=== PATIENT | male | born 1950 | race Caucasian/White ===

== ENCOUNTER → 2019-10-30 | Outpatient (REF) | payer BC ==
[~2019-10-30] MED LIST: /AUGM875TA OR; ATEN25TA PO; AUGM875T28 PO; BACT800T5 PO; CLIN300C OR; COUM1TAB PO; DILT240C47 PO; DRIS50003 PO; FISH1000 PO; FISHCAP PO; FLEC50TA2 OR; FLON0.05; GEMF600T OR; GEMF600T5 PO; LOSA100T50 PO; METF850T4 PO; MICO2CRE TOP; MULTIVIT PO; NIAS500T2 OR; PRAV20TA2 PO; PRAV40TA2 PO; VALS80CA OR; XARE20TA PO
== END ==
LOC: M SFHCLERA 14:34
PROVIDERS: ATTEND Physician Assistant
DX: R31.9 Hematuria, unspecified (principal)

== ENCOUNTER → 2020-03-25 | Outpatient (CLI) | payer BC ==
[~2020-03-25] MED LIST changes: +FLUT05CR; +FURO20TA2 PO; +MULTCAP PO; +SILD100T; +SITA50TAB PO; +TAMS1CAP17; +VITA50005
== END ==
LOC: M LABSMTC 09:48
PROVIDERS: ATTEND Anesthesiology
DX: Z01.812 Encounter for preprocedural laboratory examination (principal); Z20.828 Contact with and (suspected) exposure to other viral communicable diseases
CPT/HCPCS: C9803; U0003

== ENCOUNTER 2020-03-30 06:44 | Day surgery (SDC) | payer BC ==
[~2020-03-30] VITALS: Ht 180.3 cm; Wt 115.7 kg
[2020-03-30] MEDS ORDERED: NS 1,000 ML IV ONE (07:00)
[2020-03-30] MEDS ORDERED: propofoL 500 MG/50 ML VIAL As Ordered ONE (07:36)
[2020-03-30] MEDS ORDERED: LIDOCAINE 2% 100MG/5ML SDV (FOR ANES.) As Ordered ONE (07:36)
--- NOTE | 2020-03-30 08:03 | ROOR ---
Patient Name: Ray Adler Procedure Date: 03/30/2020 7:32 AM Date of : 1950 Age: 70 Room: [facility] Gender: Male Note Status: Finalized Procedure: Total Colonoscopy to Cecum + Cold Snare Polypectomy Indications: Screening for colorectal malignant neoplasm Providers: Conor Moncada MD Referring MD: Rahul Flynn Np Requesting Provider: Medicines: Monitored Anesthesia Care Complications: No immediate complications. Procedure: Pre-Anesthesia Assessment: - The heart rate, respiratory rate, oxygen saturations, blood pressure, adequacy of pulmonary ventilation, and response to care were monitored throughout the procedure. The Colonoscope was introduced through the anus and advanced to the cecum, identified by appendiceal orifice and ileocecal valve. The colonoscopy was performed without difficulty. The patient tolerated the procedure well. The quality of the bowel preparation was excellent. Findings: The perianal and digital rectal examinations were normal. Non-bleeding internal hemorrhoids were found during retroflexion. The hemorrhoids were small and Grade I (internal hemorrhoids that do not prolapse). Scattered small-mouthed diverticula were found in the recto-sigmoid colon, sigmoid colon and descending colon. Multiple sessile polyps were found in the entire colon. The polyps were small in size. These polyps were removed with a cold snare. Resection and retrieval were complete. The exam was otherwise without abnormality on direct and retroflexion views. Impression: - Non-bleeding internal hemorrhoids. - Diverticulosis in the recto-sigmoid colon, in the sigmoid colon and in the descending colon. - Multiple small polyps in the entire colon, removed with a cold snare. Resected and retrieved. - The examination was otherwise normal on direct and retroflexion views. - The exam was otherwise normal to the cecum. Recommendation: - Patient has a contact number available for emergencies. The signs and symptoms of potential delayed complications were discussed with the patient. Return to normal activities tomorrow. Written discharge instructions were provided to the patient. - High fiber diet. - Discharge patient to home. - Continue present medications. - Await pathology results. - Telephone GI clinic for pathology results in 1 week. - Repeat colonoscopy in 5 years for surveillance based on pathology results. - Return to referring physician. - The findings and recommendations were discussed with the patient. Conor Moncada MD Conor Moncada MD 03/30/2020 8:02:22 AM Electronically signed by Conor Moncada MD Number of Addenda: 0 Note Initiated On: 03/30/2020 7:32 AM Estimated Blood Loss: Estimated blood loss: none.
[2020-03-30 08:28] VITALS: BP 117/58
== END 2020-03-30 08:30 | disposition home or self-care (01) ==
LOC: M OPP 06:44
PROVIDERS: ATTEND Internal Medicine Gastroenterology
DX: Z12.11 Encounter for screening for malignant neoplasm of colon (principal); K64.0 First degree hemorrhoids; K57.90 Diverticulosis of intestine, part unspecified, without perforation or abscess without bleeding; K63.5 Polyp of colon

== ENCOUNTER 2020-04-24 00:59 | Inpatient (IN) | payer BC ==
[~2020-04-24] VITALS: Ht 180.3 cm; Wt 116.2 kg
[~2020-04-24 00:59] MED LIST changes: -SILD100T; +SILD100T PO; -TAMS1CAP17; +TAMS1CAP17 PO; -VITA50005; +VITA50005 PO
[2020-04-24] MEDS ORDERED: ACETAMINOPHEN TAB 650MG DOSE (2X325MG) PO ONE (02:00)
[2020-04-24] MEDS ORDERED: NS 500 ML IV ONE (02:00)
[2020-04-24 02:17] LABS: BASO % 0.2 % (0.0-1.0); EOS % 0.1 % (0.0-3.0); HEMATOCRIT 42.5 % (42.0-52.0); HEMOGLOBIN 14.5 g/dl (13.5-17.5); LYMPH # 0.2 10^3/uL (1.5-5.0); MEAN CORPUSCULAR HEMOGLOBIN 31.1 pg (27.0-33.0); MEAN CORPUSCULAR HGB CONC 34.1 g/dl (32.0-36.5); MEAN CORPUSCULAR VOLUME 91.2 fl (80.0-96.0); MONO % 6.5 % (0.0-5.0); NEUTROPHILS # 13.9 10^3/uL (1.5-8.5); NEUTROPHILS % 91.5 % (36.0-66.0); PLATELET COUNT, AUTOMATED 204 10^3/uL (150-450); RED BLOOD COUNT 4.66 10^6/uL (4.30-6.10); WHITE BLOOD COUNT 15.2 10^3/uL (4.0-10.0)
[2020-04-24 02:22] LABS: APPEARANCE, URINE CLEAR (CLEAR); BACTERIA, URINE AUTO NEGATIVE (NEGATIVE); BILIRUBIN, URINE AUTO NEGATIVE (NEGATIVE); BLOOD, URINE BLOOD NEGATIVE (NEGATIVE); COLOR, URINE YELLOW (YELLOW); GLUCOSE, URINE (UA) AUTO NEGATIVE (NEGATIVE); KETONE, URINE AUTO NEGATIVE (NEGATIVE); LEUKOCYTE ESTERASE, URINE AUTO NEGATIVE (NEGATIVE); MUCUS, URINE SMALL (NEGATIVE); NITRITE, URINE AUTO NEGATIVE (NEGATIVE); PROTEIN, URINE AUTO NEGATIVE (NEGATIVE); RBC, URINE AUTO 3 /HPF (0-3); SPECIFIC GRAVITY URINE AUTO 1.024 (1.002-1.035); SQUAMOUS EPITHELIAL CELL UR AU 1 /HPF (0-6); UROBILINOGEN, URINE AUTO 0.2 mg/dL (0.0-2.0); WBC, URINE AUTO 1 /HPF (0-3)
[2020-04-24 02:37] LABS: ERYTHROCYTE SEDIMENTATION RATE 4 mm/hr (0-20)
[2020-04-24 02:40] LABS: ALBUMIN 3.6 GM/DL (3.2-5.2); BILIRUBIN,DIRECT 0.3 MG/DL (0.0-0.2); BILIRUBIN,TOTAL 0.9 MG/DL (0.2-1.0); C REACTIVE PROTEIN QUANTITATIV 1.27 MG/DL (0.00-0.30); CALCIUM LEVEL 8.7 MG/DL (8.8-10.2); CREATININE FOR GFR 1.61 MG/DL (0.70-1.30); GLOMERULAR FILTRATION RATE 45.4 (>42); POTASSIUM SERUM 3.8 MEQ/L (3.5-5.1); TOTAL PROTEIN 6.1 GM/DL (6.4-8.2)
[2020-04-24] MEDS ORDERED: IBUPROFEN 600MG TAB PO ONE (04:15)
--- NOTE | 2020-04-24 04:20 | REPVR ---
PROCEDURE INFORMATION: Exam: XR Chest, 1 View Exam date and time: 04/24/2020 3:52 AM Age: 70 years old Clinical indication: Other: Sepsis/shock TECHNIQUE: Imaging protocol: XR of the chest Views: 1 view. COMPARISON: CR Chest, 2 view PA, Lat 03/05/2016 5:06 PM FINDINGS: Tubes, catheters and devices: A pacemaker from the left is unchanged. Lungs: Minimal lateral left base scar is unchanged. There are no interval infiltrates. Pleural space: Unremarkable. No pleural effusion. No pneumothorax. Heart/Mediastinum: The heart and mediastinum are unchanged. Bones/joints: Unremarkable. IMPRESSION: Stable chest since 03/05/2016. No acute interval process is identified. Electronically signed by: Farooq Magallanes On 04/24/2020 04:20:41 AM
[2020-04-24] MEDS ORDERED: NOREPINEPHRINE BITARTRATE 8 MG in D5W 492 ML IV SCH (05:00)
[2020-04-24] MEDS ORDERED: ceFAZolin SOD 1 GM in D5W MINI-BAG PLUS 50 ML IV ONE (05:00)
[2020-04-24] MEDS ORDERED: NS 1,000 ML IV ONE ×4 (05:00→07:45)
[2020-04-24] MEDS ORDERED: METF10004 PO (05:08)
[2020-04-24] MEDS ORDERED: ONDANSETRON 4MG/2ML VIAL IV PRN (05:45)
[2020-04-24] MEDS ORDERED: CALCIUM CARBONATE 500 MG CHEW U/D PO ONE (05:45)
[2020-04-24] MEDS ORDERED: VANCOMYCIN HCL 1,000 MG, VIAL MATE ADAPTER 1 EACH in D5W 250 ML IV ONE ×2 (06:00→07:00)
--- NOTE | 2020-04-24 06:08 | HPEPDOC ---
[facility] Medical History & Physical Date of Admission Apr 24, 2020 Date of Service: Apr 24, 2020 Attending Physician: SUHA EASTON MD History and Physical CHIEF COMPLAINT: Chills, leg redness HISTORY OF PRESENT ILLNESS: Patient is a 70-year-old male who presented to the emergency department overnight after he started getting the chills. Patient says that he has a history of recurrent cellulitis of the lower right leg around the alonzo. Every time he gets this, he starts with the shaking chills and his leg turns red. Patient has been seen by infectious disease in the remote past for this is been recurrent. Patient states he is gone and seen a surgeon about this as he's had some lymphedema secondary to what he says is damaged lymph nodes within the first cellulitis. Patient states that he tries to take really good care of his legs with moisturizing cream after every time he showers. Patient states that the first time he got cellulitis he had a little cut on the anterior part of his ankle that started the initial attack. Patient states that he is feeling a little tired today but his shaking chills have gone away after taking acetaminophen and ibuprofen. Patient does have some stomach pain at this time but feels otherwise well. Patient does not know if he had any injury to his leg that precipitated this attack. PAST MEDICAL HISTORY: 1. Recurrent cellulitis 4. 2. Hypertension. 3. Atrial fibrillation status post pacemaker. 4. Type 2 diabetes, on oral medications 4. BPH with elevated PSA PAST SURGICAL HISTORY: 1. Pacemaker placement. 2. Left inguinal hernia repair. 3. Multiple prostate biopsies. SOCIAL HISTORY: Patient denies tobacco use, alcohol use, illicit drug use. 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 REVIEW OF SYSTEMS: General: Patient reports fevers and chills at home HEENT: Patient denies headaches Cardiovascular: Patient denies chest pain Respiratory: Patient denies shortness of breath, cough GI: Patient reports abdominal pain and nausea but denies vomiting or diarrhea : Patient denies increased frequency or pain with urination Extremities: Patient reports increased swelling, redness, pain in the right lower extremity. Patient denies any swelling in his left lower extremity Neurological: Patient denies numbness or tingling in legs Skin: Patient denies any new rashes or lesions. Hematologic: Patient denies any easy bruising. Lymphatic: Patient denies any lumps lumps or bumps in neck, axilla, or groin HOME MEDICATIONS: Please see below. PHYSICAL EXAMINATION: VITAL SIGNS: See below General: Alert and oriented male patient who was laying on the stretcher in the emergency department when I walked into the room. Patient did not appear to be in any acute distress. HEENT: Normocephalic, atraumatic, moist mucous membranes. Neck: No lymphadenopathy or thyromegaly Cardiac: Irregularly irregular rhythm with a normal rate, no murmurs, normal S1, normal S2 Pulm: Clear to auscultation bilaterally. No wheezes, rhonchi, rales Abd: Nondistended, nontender to palpation, normal bowel sounds Ext: Right anterior alonzo was erythematous and warm to the touch. There was 1+ edema in this area. There was some mild tenderness to palpation as area. There was trace pitting edema along the alonzo of the left extremity. Skin: No rashes or other lesions on the examined skin of the head, neck, arms, lower part of the legs, and back. Patient did have multiple scattered moles on his back LABORATORY DATA: See below. IMAGING: A chest x-ray performed on 04/24/2020 was reported to show stable chest x-ray since 03/05/2016, no acute interval processes identified. MICROBIOLOGY: Please see below. ASSESSMENT: Patient is a 70-year-old male who presents to the emergency department with chills and a red leg was diagnosed with cellulitis. Patient's blood pressures were low patient was slightly tachycardic and was diagnosed with sepsis secondary to cellulitis . PLAN: 1. Cellulitis of right lower extremity. Patient will be placed on vancomycin IV for the time being. Patient has never had a positive MRSA screen according to the patient that this will be retested at this time. If negative, antibiotics and was switched to something without MRSA coverage. 2. Sepsis. Patient was tachycardic and hypotensive as well as febrile at 100.5F. Patient will lactic acidosis of 2.2. 3 L additional bolus has been initiated on top of the 500 mL bolus the patient has received in the ED. Repeat lactic acid will be ordered. Patient is being treated with vancomycin for cell ulitis. 3. Atrial fibrillation. Patient is currently in atrial fibrillation on exam however, he is not in RVR. We'll continue the patient's home medication including his home Xarelto. 4. Hypertension. Patient is currently hypotensive so we will hold his antihypertensive medications. These can be restarted if the patient becomes hypertensive. 5. Type 2 diabetes. Patient's metformin and Januvia will be held and the patient will be started on before meals at bedtime fingersticks with sliding scale coverage. 6. DVT prophylaxis. Patient is on full coagulation with Xarelto. 7. CODE STATUS: Patient would like to be DO NOT RESUSCITATE with a trial of intubation. MOLST form has been filled out with the patient in his on his chart. Vital Signs Vital Signs Date Time Temp Pulse Resp B/P (MAP) Pulse Ox O2 Delivery O2 Flow Rate FiO2 04/24/20 05:00 95 22 101/54 (70) 97 Room Air 04/24/20 03:52 100.4 Laboratory Data Labs 24H Laboratory Tests 2 04/24/20 02:02: Immature Granulocyte % (Auto) 0.7, Neutrophils (%) (Auto) 91.5H, Lymphocytes (%) (Auto) 1.0L, Monocytes (%) (Auto) 6.5H, Eosinophils (%) (Auto) 0.1, Basophils (%) (Auto) 0.2, Neutrophils # (Auto) 13.9H, Lymphocytes # (Auto) 0.2L, Monocytes # (Auto) 1.0H, Eosinophils # (Auto) 0.0, Basophils # (Auto) 0.0, Nucleated Red Blood Cells % (auto) 0.0, Erythrocyte Sedimentation Rate 4, Urine Color YELLOW, Urine Appearance CLEAR, Urine pH 5.0, Urine Specific [place] 1.024, Urine Protein NEGATIVE, Urine Glucose (Auto)(UA) NEGATIVE, Urine Ketones (Auto) NEGATIVE, Urine Blood NEGATIVE, Urine Nitrite NEGATIVE, Urine Bilirubin NEGATIVE, Urine Urobilinogen 0.2, Urine Leukocyte Esterase (Auto) NEGATIVE, Urine WBC (Auto) 1, Urine RBC (Auto) 3, Urine Hyaline Casts (Auto) 0, Urine Bacteria (Auto) NEGATIVE, Urine Squamous Epithelial Cells 1, Urine Mucus (Auto) SMALL, Urine Sperm (Auto) , Anion Gap 7L, Glomerular Filtration Rate 45.4, Calcium Level 8.7L, Total Bilirubin 0.9, Direct Bilirubin 0.3H, Aspartate Amino Transf (AST/SGOT) 18, Alanine Aminotransferase (ALT/SGPT) 25, Alkaline Phosphatase 80, C-Reactive Protein, Quantitative 1.27H, Total Protein 6.1L, Albumin 3.6, Albumin/Globulin Ratio 1.4 04/24/20 02:03: Lactic Acid Level 2.2*H CBC/BMP Laboratory Tests 04/24/20 02:02 Microbiology Microbiology 04/24/20 Urine Culture, Received Pending 04/24/20 Respiratory Virus Panel (PCR) ([facility]KAS) - Final, Complete 04/24/20 Blood Culture, Received Pending 04/24/20 Blood Culture, Received Pending Home Medications Scheduled Atenolol (Atenolol) 25 Mg Tab, 25 MG PO DAILY Diltiazem HCl (Diltiazem 24Hr ER) 240 Mg Cap, 240 MG PO QPM Ergocalciferol (Vitamin D2) (Vitamin D2) 50,000 Units Cap, 50,000 UNITS PO Q2WK SATURDAY Furosemide (Furosemide) 20 Mg Tablet, 20 MG PO DAILY Gemfibrozil (Gemfibrozil) 600 Mg Tab, 600 MG PO DAILY Losartan Potassium (Losartan Potassium) 100 Mg Tab, 100 MG PO DAILY Metformin HCl (Metformin HCl) 1,000 Mg Tablet, 1,000 MG PO BID [place]-3 Fatty Acids/Fish Oil (Fish Oil 1,000 mg Capsule) 1 Each Capsule, 2,000 MG PO QPM Pravastatin Sodium (Pravastatin Sodium) 40 Mg Tab, 40 MG PO QPM Rivaroxaban (Xarelto) 20 Mg Tab, 20 MG PO QPM Sitagliptin (Januvia) 50 Mg Tablet, 50 MG PO DAILY Tamsulosin Hcl (Tamsulosin HCl) 0.4 Mg Capsule, 0.8 MG PO QHS Scheduled PRN Sildenafil Citrate (Sildenafil Citrate) 100 Mg Tablet, 100 MG PO ASDIRECTED PRN for ERECTILE DYSFUNCTION Miscellaneous Medications Multivitamin (Multivitamins) 1 Each Capsule, 1 CAP PO Allergies Coded Allergies: No Known Allergies (Verified Allergy, Unknown, 03/23/20) A-FIB/CHADSVASC A-FIB History Current/History of A-Fib/PAF?: Yes Current PO Anticoag Therapy: Yes GME ATTESTATION GME ATTESTATION My faculty preceptor for this patient encounter was physically present during the encounter and was fully available. All aspects of the patient interview, examination, medical decision making process, and medical care plan development were reviewed and approved by the faculty preceptor. The faculty preceptor is aware and concurs with the plan as stated in the body of this note and will attest to such by his/her cosignature. ATTENDING NOTE I have independently interviewed and examined the patient, and agree with the physical examination findings, assessment and management plan as documented by my Resident Physician above. The patient's questions have been addressed, and he was encouraged to call our office for any new questions or concerns. TUSHAR EDMOND DO Apr 24, 2020 06:08 SUHA EASTON MD Apr 25, 2020 00:19
[2020-04-24 06:12] VITALS: BP 104/62
[2020-04-24] MEDS ORDERED: GLUCOSE 4GM CHEW TABLET PO PRN (06:15)
[2020-04-24] MEDS ORDERED: GLUCAGON INJ 1MG VIAL SC PRN (06:15)
[2020-04-24] MEDS ORDERED: DEXTROSE 50% 50 ML SYRINGE IV PRN (06:15)
[2020-04-24] MEDS: gemfibroziL 600 MG TAB PO SCH (08:09)
[2020-04-24] MEDS: HumaLOG INSULIN (NovoLOG) PER UNIT SC SCH ×4 (08:10→20:29)
[2020-04-24] MEDS: atenoloL 25 MG TAB PO SCH (08:10)
[2020-04-24] MEDS ORDERED: LOSARTAN 50MG TABLET PO SCH (09:00)
[2020-04-24] MEDS ORDERED: ENOXAPARIN 40MG/0.4ML SYRINGE (J1650 PER 10MG) SC SCH (09:00)
[2020-04-24] MEDS ORDERED: FUROSEMIDE 20 MG TAB PO SCH (09:00)
[2020-04-24 11:43] VITALS: BP 92/54
[2020-04-24] MEDS: NS 1,000 ML IV SCH ×2 (12:40→20:29)
[2020-04-24 14:00] VITALS: BP 94/56
[2020-04-24] MEDS ORDERED: ACETAMINOPHEN TAB 650MG DOSE (2X325MG) PO PRN (16:00)
[2020-04-24 17:07] VITALS: BP 116/63
[2020-04-24] MEDS: RIVAROXABAN 20 MG TAB (XARELTO) PO SCH (20:28)
[2020-04-24] MEDS: VANCOMYCIN HCL 1,000 MG, VIAL MATE ADAPTER 1 EACH in D5W 250 ML IV SCH (20:28)
[2020-04-24] MEDS: PRAVASTATIN 20 MG TAB PO SCH (20:28)
[2020-04-24] MEDS: TAMSULOSIN 0.4 MG CAP PO SCH (20:28)
[2020-04-24 22:00] VITALS: BP 120/60
[2020-04-25 06:00] VITALS: BP 122/69
[2020-04-25] MEDS: NS 1,000 ML IV SCH (06:00)
[2020-04-25 06:31] LABS: BASO % 0.2 % (0.0-1.0); EOS # 0.1 10^3/uL (0.0-0.5); EOS % 0.6 % (0.0-3.0); HEMATOCRIT 37.5 % (42.0-52.0); HEMOGLOBIN 12.8 g/dl (13.5-17.5); LYMPH # 0.7 10^3/uL (1.5-5.0); LYMPH % 6.9 % (24.0-44.0); MEAN CORPUSCULAR HEMOGLOBIN 31.3 pg (27.0-33.0); MEAN CORPUSCULAR HGB CONC 34.1 g/dl (32.0-36.5); MEAN CORPUSCULAR VOLUME 91.7 fl (80.0-96.0); MONO # 0.7 10^3/uL (0.0-0.8); MONO % 6.9 % (0.0-5.0); NEUTROPHILS # 8.9 10^3/uL (1.5-8.5); PLATELET COUNT, AUTOMATED 169 10^3/uL (150-450); RED BLOOD COUNT 4.09 10^6/uL (4.30-6.10); WHITE BLOOD COUNT 10.5 10^3/uL (4.0-10.0)
[2020-04-25 06:58] LABS: BLOOD UREA NITROGEN 16 MG/DL (7-18); CALCIUM LEVEL 8.2 MG/DL (8.8-10.2); CARBON DIOXIDE LEVEL 22 MEQ/L (21-32); CHLORIDE LEVEL 111 MEQ/L (98-107); CREATININE FOR GFR 1.26 MG/DL (0.70-1.30); GLOMERULAR FILTRATION RATE > 60.0 (>42); GLUCOSE, FASTING 139 MG/DL (70-100); POTASSIUM SERUM 3.6 MEQ/L (3.5-5.1); SODIUM LEVEL 140 MEQ/L (136-145)
[2020-04-25] MEDS: VANCOMYCIN HCL 1,000 MG, VIAL MATE ADAPTER 1 EACH in D5W 250 ML IV SCH (08:37)
[2020-04-25] MEDS: HumaLOG INSULIN (NovoLOG) PER UNIT SC SCH ×4 (08:38→20:37)
[2020-04-25] MEDS: gemfibroziL 600 MG TAB PO SCH (08:39)
[2020-04-25] MEDS: atenoloL 25 MG TAB PO SCH (08:45)
[2020-04-25] MEDS: cefTRIAXone SOD 2 GM in D5W MINI-BAG PLUS 50 ML IV SCH (11:11)
--- NOTE | 2020-04-25 11:53 | IPNPDOC ---
Text Note Date of Service The patient was seen on 04/25/20. NOTE SUBJECTIVE: No fever or chills. Redness of the right leg remains unchanged. No new complaints this am. PHYSICAL EXAMINATION: VITAL SIGNS: See below General: Sitting up by the side of bed in no distress. HEENT: Normocephalic, atraumatic, moist mucous membranes, anicteric eyes. Neck: No lymphadenopathy or thyromegaly, N JVD. Cardiac: Irregularly irregular rhythm with a normal rate, no murmurs, normal S1, normal S2 Pulm: Clear to auscultation bilaterally. No wheezes, rhonchi or rales Abd: Nondistended, nontender to palpation, normal bowel sounds Ext: Right anterior alonzo was erythematous and warm to the touch. There was 1+ edema in this area. There was some mild tenderness to palpation as area. Skin: No rashes or other lesions on the examined skin of the head, neck, arms, lower part of the legs, and back. Patient did have multiple scattered moles on his back, There is dried cracked skin in between the toes of right foot. Labs and radiology: Reviewed Assessment and Plan: Patient is a 70-year-old male who presented to the emergency department after he started getting the chills. Patient says that he has a history of recurrent cellulitis of the lower right leg around the alonzo. Every time he gets this, he starts with the shaking chills and his leg turns re d. Patient has been seen by infectious disease in the remote past for this is been recurrent. Patient states he is gone and seen a surgeon about this as he's had some lymphedema secondary to what he says is damaged lymph nodes within the first cellulitis. Patient states that he tries to take really good care of his legs with moisturizing cream after every time he showers. He was admitted for right leg recurrent cellulitis. Cellulitis of right lower extremity. blood culture 1/2 strep agalactiae vanco changed to ceftriaxone. Sepsis. due to cellulitis resolved Chronic Atrial fibrillation rate controlled xarelto SSS/s/p pacemaker placement Hypertension was hypotensive on admission, now BP in normal range restarted atenolol, others are on hold. Type 2 diabetes. Lispro as per sliding scale. BPH with elevated PSA no issues in voiding at present. flomax. HLD statin, gemfibrozil DVT prophylaxis on Xarelto. VS,Fishbone, I+O VS, Fishbone, I+O Laboratory Tests 04/25/20 06:03 Vital Signs Date Time Temp Pulse Resp B/P (MAP) Pulse Ox O2 Delivery O2 Flow Rate FiO2 04/25/20 06:00 98.7 75 18 122/69 (86) 95 Room Air I&O- Last 24 Hours up to 6 AM 04/25/20 06:59 Intake Total 4550 ml Output Total 1600 ml Balance 2950 ml VANDANA SAENZ MD Apr 25, 2020 08:01
[2020-04-25 14:00] VITALS: BP 150/93
[2020-04-25] MEDS: RIVAROXABAN 20 MG TAB (XARELTO) PO SCH (20:40)
[2020-04-25] MEDS: TAMSULOSIN 0.4 MG CAP PO SCH (20:40)
[2020-04-25] MEDS: PRAVASTATIN 20 MG TAB PO SCH (20:40)
[2020-04-25 22:00] VITALS: BP 118/75
[2020-04-26 06:00] VITALS: BP 126/63
[2020-04-26 06:44] LABS: BASO % 0.2 % (0.0-1.0); EOS # 0.1 10^3/uL (0.0-0.5); EOS % 0.6 % (0.0-3.0); HEMATOCRIT 37.5 % (42.0-52.0); HEMOGLOBIN 12.6 g/dl (13.5-17.5); LYMPH # 0.8 10^3/uL (1.5-5.0); LYMPH % 9.2 % (24.0-44.0); MEAN CORPUSCULAR HGB CONC 33.6 g/dl (32.0-36.5); MEAN CORPUSCULAR VOLUME 92.4 fl (80.0-96.0); MONO # 0.9 10^3/uL (0.0-0.8); MONO % 9.5 % (0.0-5.0); NEUTROPHILS # 7.2 10^3/uL (1.5-8.5); NEUTROPHILS % 80.2 % (36.0-66.0); PLATELET COUNT, AUTOMATED 168 10^3/uL (150-450); RED BLOOD COUNT 4.06 10^6/uL (4.30-6.10)
[2020-04-26 07:17] LABS: CALCIUM LEVEL 8.2 MG/DL (8.8-10.2); CREATININE FOR GFR 1.3 MG/DL (0.70-1.30); GLOMERULAR FILTRATION RATE 58.1 (>42); POTASSIUM SERUM 3.6 MEQ/L (3.5-5.1)
[2020-04-26] MEDS: HumaLOG INSULIN (NovoLOG) PER UNIT SC SCH ×4 (08:04→20:32)
[2020-04-26] MEDS: gemfibroziL 600 MG TAB PO SCH (08:04)
[2020-04-26] MEDS: atenoloL 25 MG TAB PO SCH (08:05)
[2020-04-26] MEDS: cefTRIAXone SOD 2 GM in D5W MINI-BAG PLUS 50 ML IV SCH (10:26)
--- NOTE | 2020-04-26 12:20 | IPNPDOC ---
Text Note Date of Service The patient was seen on 04/26/20. NOTE SUBJECTIVE: No fever or chills. Redness of the right leg remains unchanged. Still swollena nd red though no pain and no difficulty in walking. PHYSICAL EXAMINATION: VITAL SIGNS: See below General: Sitting up by the side of bed in no distress. HEENT: Normocephalic, atraumatic, moist mucous membranes, anicteric eyes. Neck: No lymphadenopathy or thyromegaly, N JVD. Cardiac: Irregularly irregular rhythm with a normal rate, no murmurs, normal S1, normal S2 Pulm: Clear to auscultation bilaterally. No wheezes, rhonchi or rales Abd: Nondistended, nontender to palpation, normal bowel sounds Ext: Right anterior alonzo was erythematous and warm to the touch. There was 1+ edema in this area. There was some mild tenderness to palpation as area. Skin: No rashes or other lesions on the examined skin of the head, neck, arms, lower part of the legs, and back. Patient did have multiple scattered moles on his back, There is dried cracked skin in between the toes of right foot. Labs and radiology: Reviewed Assessment and Plan: Patient is a 70-year-old male who presented to the emergency department after he started getting the chills. Patient says that he has a history of recurrent cellulitis of the lower right leg around the alonzo. Every time he gets this, he starts with the shaking chills and his leg turns red. Patient has been seen by infectious disease in the remote past for this is been recurrent. Patient states he is gone and seen a surgeon about this as he's had some lymphedema secondary to what he says is damaged lymph nodes within the first cellulitis. Patient states that he tries to take really good care of his legs with moisturizing cream after every time he showers. He was admitted for right leg recurrent cellulitis. Cellulitis of right lower extremity. blood culture 1/3 strep agalactiae 2 sets are prelim negative. ceftriaxone. Sepsis. due to cellulitis resolved Chronic Atrial fibrillation rate controlled xarelto SSS/s/p pacemaker placement Hypertension was hypotensive on admission, now BP in normal range restarted atenolol, others are on hold. Type 2 diabetes. Lispro as per sliding scale. BPH with elevated PSA no issues in voiding at present. flomax. HLD statin, gemfibrozil DVT prophylaxis on Xarelto. VS,Fishbone, I+O VS, Fishbone, I+O Laboratory Tests 04/26/20 06:05 Vital Signs Date Time Temp Pulse Resp B/P (MAP) Pulse Ox O2 Delivery O2 Flow Rate FiO2 04/26/20 08:05 68 123/65 04/26/20 06:00 97.9 18 97 Room Air I&O- Last 24 Hours up to 6 AM 04/26/20 06:00 Intake Total 2320 ml Output Total 1350 ml Balance 970 ml VANDANA SAENZ MD Apr 26, 2020 12:20
[2020-04-26] MEDS ORDERED: FUROSEMIDE 40MG/4ML VIAL (J1940) IV ONE (12:30)
[2020-04-26 14:00] VITALS: BP 128/71
[2020-04-26] MEDS: PRAVASTATIN 20 MG TAB PO SCH (20:32)
[2020-04-26] MEDS: RIVAROXABAN 20 MG TAB (XARELTO) PO SCH (20:32)
[2020-04-26] MEDS: TAMSULOSIN 0.4 MG CAP PO SCH (20:32)
[2020-04-26 22:00] VITALS: BP 128/66
[2020-04-27 06:00] VITALS: BP 125/71
[2020-04-27 07:21] LABS: BASO % 0.4 % (0.0-1.0); EOS # 0.1 10^3/uL (0.0-0.5); EOS % 1.4 % (0.0-3.0); HEMATOCRIT 35.4 % (42.0-52.0); HEMOGLOBIN 11.6 g/dl (13.5-17.5); LYMPH % 13.8 % (24.0-44.0); MEAN CORPUSCULAR HEMOGLOBIN 29.9 pg (27.0-33.0); MEAN CORPUSCULAR HGB CONC 32.8 g/dl (32.0-36.5); MEAN CORPUSCULAR VOLUME 91.2 fl (80.0-96.0); MONO # 0.8 10^3/uL (0.0-0.8); MONO % 11.8 % (0.0-5.0); NEUTROPHILS # 5.1 10^3/uL (1.5-8.5); NEUTROPHILS % 71.9 % (36.0-66.0); PLATELET COUNT, AUTOMATED 189 10^3/uL (150-450); RED BLOOD COUNT 3.88 10^6/uL (4.30-6.10); WHITE BLOOD COUNT 7.1 10^3/uL (4.0-10.0)
[2020-04-27 07:34] LABS: CALCIUM LEVEL 8.3 MG/DL (8.8-10.2); CREATININE FOR GFR 1.33 MG/DL (0.70-1.30); GLOMERULAR FILTRATION RATE 56.6 (>42); POTASSIUM SERUM 3.4 MEQ/L (3.5-5.1)
[2020-04-27] MEDS: gemfibroziL 600 MG TAB PO SCH (08:31)
[2020-04-27 08:32] VITALS: BP 125/71
[2020-04-27] MEDS: atenoloL 25 MG TAB PO SCH (08:32)
[2020-04-27] MEDS: HumaLOG INSULIN (NovoLOG) PER UNIT SC SCH (08:32)
[2020-04-27] MEDS ORDERED: FUROSEMIDE 40MG/4ML VIAL (J1940) IV ONE (09:15)
[2020-04-27] MEDS: cefTRIAXone SOD 2 GM in D5W MINI-BAG PLUS 50 ML IV SCH (10:31)
[2020-04-27] MEDS ORDERED: POTASSIUM CHLORIDE 10 MEQ SR TABLET PO ONE (11:00)
[2020-04-27] MEDS ORDERED: MICO2CRE42 TOP (11:05)
[2020-04-27] MEDS ORDERED: KEFL500C17 PO (11:05)
--- NOTE | 2020-04-27 12:34 | DS.PDOC ---
Discharge Summary General Date of Admission Apr 24, 2020 at 04:51 Date of Discharge 04/27/20 Discharge Summary PROCEDURES PERFORMED DURING STAY: [None]. DISCHARGE DIAGNOSES: Sepsis Right Leg Cellulitis Recurrent Intertrigo in between the right toes Chronic venous stasis in the right leg. SECONDARY DIAGNOSIS: Chronic atrial fibrillation SSS s/p pacemaker DM HTN HLD Obesity BPH COMPLICATIONS/CHIEF COMPLAINT: Cellulitis Sepsis. HOSPITAL COURSE: Patient is a 70-year-old male who presented to the emergency department after he started getting the chills. Patient says that he has a history of recurrent cellulitis of the lower right leg around the alonzo. Every time he gets this, he starts with the shaking chills and his leg turns red. Patient has been seen by infectious disease in the remote past for this is been recurrent. Patient states he is gone and seen a surgeon about this as he's had some lymphedema secondary to what he says is damaged lymph nodes within the first cellulitis. Patient states that he tries to take really good care of his legs with moisturizing cream after every time he showers. He was admitted for right leg recurrent cellulitis. Recurrent Cellulitis of right lower extremity. blood culture 1/3 strep agalactiae 2 sets are prelim negative. Keflex miconazole cream in between the toes, Compression stockings for right leg. Sepsis. due to cellulitis resolved Chronic Atrial fibrillation rate controlled xarelto SSS/s/p pacemaker placement Hypertension was hypotensive on admission, now BP in normal range restarted atenolol, others are on hold. Type 2 diabetes. Lispro as per sliding scale. BPH no issues in voiding at present. flomax. HLD statin, gemfibrozil DISCHARGE MEDICATIONS: Please see below. ALLERGIES: Please see below. PHYSICAL EXAMINATION ON DISCHARGE: VITAL SIGNS: Please see below. General: Sitting up by the side of bed in no distress. HEENT: Normocephalic, atraumatic, moist mucous membranes, anicteric eyes. Neck: No lymphadenopathy or thyromegaly, N JVD. Cardiac: Irregularly irregular rhythm with a normal rate, no murmurs, normal S1, normal S2 Pulm: Clear to auscultation bilaterally. No wheezes, rhonchi or rales Abd: Nondistended, nontender to palpation, normal bowel sounds Ext: Right anterior alonzo was erythematous and warm to the touch. There was 1+ edema in this area. There was some mild tenderness to palpation as area. Skin: No rashes or other lesions on the examined skin of the head, neck, arms, lower part of the legs, and back. Patient did have multiple scattered moles on his back, There is dried cracked skin in between the toes of right foot. LABORATORY DATA: Please see below. ACTIVITY: [As tolerated]. DIET: Carb consistent DISPOSITION: 01 Home, Self-Care. DISCHARGE INSTRUCTIONS: Follow up with PMD in 1 week ITEMS TO FOLLOWUP ON ON OUTPATIENT: Final blood culture results. DISCHARGE CONDITION: [Stable]. TIME SPENT ON DISCHARGE: 35 minutes. Vital Signs/I&Os Vital Signs Date Time Temp Pulse Resp B/P (MAP) Pulse Ox O2 Delivery O2 Flow Rate FiO2 04/27/20 08:32 70 125/71 04/27/20 06:00 98.8 18 96 Room Air I&O- Last 24 Hours up to 6 AM 04/27/20 06:00 Intake Total 1380 ml Output Total 3750 ml Balance -2370 ml Laboratory Data Labs 24H Laboratory Tests 2 04/26/20 16:37: Bedside Glucose (Misc Panel) 106 04/26/20 20:24: Bedside Glucose (Misc Panel) 196H 04/27/20 06:27: Immature Granulocyte % (Auto) 0.7, Neutrophils (%) (Auto) 71.9H, Lymphocytes (%) (Auto) 13.8L, Monocytes (%) (Auto) 11.8H, Eosinophils (%) (Auto) 1.4, Basophils (%) (Auto) 0.4, Neutrophils # (Auto) 5.1, Lymphocytes # (Auto) 1.0L, Monocytes # (Auto) 0.8, Eosinophils # (Auto) 0.1, Basophils # (Auto) 0.0, Nucleated Red Blood Cells % (auto) 0.0, Anion Gap 6L, Glomerular Filtration Rate 56.6, Calcium Level 8.3L CBC/BMP Laboratory Tests 04/27/20 06:27 FSBS Laboratory Tests Test 04/26/20 16:37 04/26/20 20:24 Range/Units Bedside Glucose (Misc Panel) 106 196 83-110 MG/DL Microbiology Microbiology 04/25/20 Blood Culture - Preliminary, Resulted No Growth after 48 hours. All Specime... 04/24/20 Urine Culture - Final, Complete 04/24/20 Respiratory Virus Panel (PCR) ([facility]) - Final, Complete 04/24/20 Blood Culture - Final, Complete Strep Agalactiae Group B 04/24/20 Blood Culture - Preliminary, Resulted No Growth after 72 hours. All specime... Discharge Medications Scheduled Atenolol (Atenolol) 25 Mg Tab, 25 MG PO DAILY, (Reported) Cephalexin (Keflex) 500 Mg Capsule, 500 MG PO QID Diltiazem HCl (Diltiazem 24Hr ER) 240 Mg Cap, 240 MG PO QPM, (Reported) Ergocalciferol (Vitamin D2) (Vitamin D2) 50,000 Units Cap, 50,000 UNITS PO Q2WK, (Reported) SATURDAY Furosemide (Furosemide) 20 Mg Tablet, 20 MG PO DAILY, (Reported) Gemfibrozil (Gemfibrozil) 600 Mg Tab, 600 MG PO DAILY, (Reported) Losartan Potassium (Losartan Potassium) 100 Mg Tab, 100 MG PO DAILY, (Reported) Metformin HCl (Metformin HCl) 1,000 Mg Tablet, 1,000 MG PO BID, (Reported) Miconazole Nitrate (Miconazole Nitrate) 30 Gm Cream..g., 1 APLCT TOP BID Apply in between the right toes and let dry [place]-3 Fatty Acids/Fish Oil (Fish Oil 1,000 mg Capsule) 1 Each Capsule, 2,000 MG PO QPM, (Reported) Pravastatin Sodium (Pravastatin Sodium) 40 Mg Tab, 40 MG PO QPM, (Reported) Rivaroxaban (Xarelto) 20 Mg Tab, 20 MG PO QPM, (Reported) Sitagliptin (Januvia) 50 Mg Tablet, 50 MG PO DAILY, (Reported) Tamsulosin Hcl (Tamsulosin HCl) 0.4 Mg Capsule, 0.8 MG PO QHS, (Reported) Scheduled PRN Sildenafil Citrate (Sildenafil Citrate) 100 Mg Tablet, 100 MG PO ASDIRECTED PRN for ERECTILE DYSFUNCTION, (Reported) Miscellaneous Medications Multivitamin (Multivitamins) 1 Each Capsule, 1 CAP PO, (Reported) Allergies Coded Allergies: No Known Allergies (Verified Allergy, Unknown, 03/23/20) VANDANA SAENZ MD Apr 27, 2020 12:34
== END 2020-04-27 12:26 | disposition home or self-care (01) | DRG 720 ==
LOC: M ED 00:59 → M ED INP 04:51 → ENRESERV 04:57 → M MSPAV 06:10
PROVIDERS: ADMIT General Practice; ATTEND Internal Medicine Nephrology
DX: A41.9 Sepsis, unspecified organism (principal); I48.20 Chronic atrial fibrillation, unspecified; L03.115 Cellulitis of right lower limb; E11.9 Type 2 diabetes mellitus without complications; I10 Essential (primary) hypertension; Z95.0 Presence of cardiac pacemaker; E66.9 Obesity, unspecified; N40.0 Benign prostatic hyperplasia without lower urinary tract symptoms; Z79.899 Other long term (current) drug therapy

== ENCOUNTER → 2022-07-10 | Outpatient (CLI) | payer BC ==
[~2022-07-10] MED LIST changes: +ERGO500029 PO; +KEFL500C17 PO; +LOSA100T45 PO; -LOSA100T50 PO; +METF10004 PO; +MICO2CRE42 TOP; -VITA50005 PO
== END ==
LOC: M LABSMTC 09:07
PROVIDERS: ATTEND Anesthesiology
DX: Z01.812 Encounter for preprocedural laboratory examination (principal); Z11.52 Encounter for screening for COVID-19

== ENCOUNTER 2022-07-13 09:10 | Day surgery (SDC) | payer BC ==
[~2022-07-13] VITALS: Ht 180.3 cm; Wt 113.4 kg
[~2022-07-13 09:10] MED LIST changes: +FINA5TAB2 PO; +ceFAZolin SOD 2 GM in IV 1 EA IV ONE
[2022-07-13] MEDS ORDERED: LR 1,000 ML IV SCH (09:55)
[2022-07-13] MEDS ORDERED: ONDANSETRON 4MG 2ML VIAL As Ordered ONE (10:23)
[2022-07-13] MEDS ORDERED: LIDOCAINE 2% 100MG/5ML SDV (FOR ANES.) As Ordered ONE (10:23)
[2022-07-13] MEDS ORDERED: fentaNYL 100 MCG/2 ML INJECTION As Ordered ONE (10:23)
[2022-07-13] MEDS ORDERED: propofoL 200 MG/20 ML VIAL As Ordered ONE ×2 (10:23→12:03)
[2022-07-13] MEDS ORDERED: LIDOCAINE 1% SDV 30ML VIAL As Ordered ONE (10:36)
[2022-07-13 14:20] VITALS: BP 126/67
== END 2022-07-13 14:35 | disposition home or self-care (01) ==
LOC: M SDC 09:10
PROVIDERS: ATTEND Internal Medicine Cardiovascular Disease
DX: T82.111A Breakdown (mechanical) of cardiac pulse generator (battery), initial encounter (principal); Z45.010 Encounter for checking and testing of cardiac pacemaker pulse generator [battery]; E11.9 Type 2 diabetes mellitus without complications; I48.91 Unspecified atrial fibrillation; N40.0 Benign prostatic hyperplasia without lower urinary tract symptoms; Z79.01 Long term (current) use of anticoagulants; Z79.899 Other long term (current) drug therapy
CPT/HCPCS: 33228; C1785; J0690; J3010

== ENCOUNTER 2024-04-30 09:40 | Emergency (ER) | payer BC ==
[~2024-04-30] VITALS: Ht 180.3 cm; Wt 116.3 kg
[~2024-04-30 09:40] MED LIST changes: -LOSA100T45 PO; +LOSA100T46 PO; -ceFAZolin SOD 2 GM in IV 1 EA IV ONE
[2024-04-30 09:47] VITALS: BP 125/73; TEMP 96.9; O2SAT 98
[2024-04-30] MEDS ORDERED: DOXY100T27 (09:50)
[2024-04-30] MEDS ORDERED: AZIT-12 (09:50)
[2024-04-30 11:43] LABS: BASO % 0.4 % (0.0-1.0); EOS # 0.1 10^3/uL (0.0-0.5); EOS % 0.8 % (0.0-3.0); HEMATOCRIT 43.5 % (42.0-52.0); HEMOGLOBIN 15.3 g/dl (13.5-17.5); LYMPH # 0.9 10^3/uL (1.5-5.0); LYMPH % 11.4 % (24.0-44.0); MEAN CORPUSCULAR HEMOGLOBIN 32.5 pg (27.0-33.0); MEAN CORPUSCULAR HGB CONC 35.2 g/dl (32.0-36.5); MEAN CORPUSCULAR VOLUME 92.4 fl (80.0-96.0); MONO # 0.9 10^3/uL (0.0-0.8); MONO % 10.9 % (2.0-8.0); NEUTROPHILS # 6.1 10^3/uL (1.5-8.5); PLATELET COUNT, AUTOMATED 200 10^3/uL (150-450); RED BLOOD COUNT 4.71 10^6/uL (4.30-6.10)
[2024-04-30 11:47] LABS: ERYTHROCYTE SEDIMENTATION RATE 23 mm/hr (0-20)
[2024-04-30 12:06] LABS: INR 1.23; PROTHROMBIN TIME 15.8 SECONDS (12.5-14.5)
[2024-04-30 12:13] LABS: ALBUMIN 3.2 G/DL (3.2-5.2); BILIRUBIN,DIRECT 0.3 MG/DL (<0.4); BILIRUBIN,TOTAL 0.8 MG/DL (0.3-1.2); CALCIUM LEVEL 9.3 MG/DL (8.3-10.6); CREATININE FOR GFR 1.36 MG/DL (0.70-1.30); GLOMERULAR FILTRATION RATE 54.5 (>42); POTASSIUM SERUM 4.1 MMOL/L (3.5-5.1); TOTAL PROTEIN 6.4 G/DL (5.7-8.2)
[2024-04-30 12:25] LABS: PROCALCITONIN 0.91 ng/ml
[2024-04-30] MEDS ORDERED: DOXY100C82 PO (13:13)
== END 2024-04-30 13:26 | disposition home or self-care (01) ==
LOC: M ED 09:40
DX: L03.115 Cellulitis of right lower limb (principal); E11.9 Type 2 diabetes mellitus without complications; I10 Essential (primary) hypertension; Z95.0 Presence of cardiac pacemaker; Z87.442 Personal history of urinary calculi; Z79.84 Long term (current) use of oral hypoglycemic drugs; Z79.899 Other long term (current) drug therapy; Z79.01 Long term (current) use of anticoagulants

== ENCOUNTER 2025-03-08 09:20 | Day surgery (SDC) | payer BC ==
[~2025-03-08] VITALS: Ht 180.3 cm; Wt 112.9 kg
[~2025-03-08 09:20] MED LIST changes: +AZIT-12; +DOXY-442 PO; +DOXY100T27; +LOPI600T PO; +MULTTAB61 PO; +OMEG10002 PO; +POTA10809 PO; -PRAV40TA2 PO; +PRAV40TA85 PO; +TRAD5TAB PO
[2025-03-08 10:50] VITALS: TEMP 98
[2025-03-08 11:15] VITALS: BP 119/60; O2SAT 97
== END 2025-03-08 11:19 | disposition home or self-care (01) ==
LOC: M OPP 09:20
PROVIDERS: ATTEND Internal Medicine Gastroenterology
DX: D12.6 Benign neoplasm of colon, unspecified (principal); K64.0 First degree hemorrhoids; Z86.0100 Personal history of colon polyps, unspecified; I48.91 Unspecified atrial fibrillation; Z95.0 Presence of cardiac pacemaker; Z79.84 Long term (current) use of oral hypoglycemic drugs; Z79.01 Long term (current) use of anticoagulants; Z79.899 Other long term (current) drug therapy